=== PATIENT | female | born 1970 | race Hispanic/Latino ===

== ENCOUNTER 2022-08-13 10:21 | Emergency (ER) | payer BC ==
--- OUTSIDE RECORDS SUMMARY | 2022-08-13 10:25 | XMS REPORT | Continuity of Care Document ---
:1970 Author Organization [facility] t Address [address] [place] [address] Care Team Providers Name Role Phone Jarvis Hendrix Attending Clinician Unavailable JARVIS HENRDIX Admitting Clinician Unavailable Payers Payer Name Policy Type Policy Number Effective Date Expiration Date Sheree matt Ambetter from [id number] 2019 [facility] 00:00:00 - [facility] Ambetter from [id number] 2019 [facility] 00:00:00 - [facility] Ambetter from [id number] 2019 [facility] 00:00:00 - [facility] Ambetter from [id number] 2019 [facility] 00:00:00 - [facility] Ambetter from [id number] 2019 [facility] 00:00:00 - [facility] Ambetter from [id number] 2019 [facility] 00:00:00 - [facility] Ambetter from [id number] 2019 [facility] 00:00:00 - [facility] Problems Condition Condition Condition Status Onset Resolution Last Treating Co mments Source Name Details Category Date Date Treatment Clinician Date [id number] Iron Problem Active [facility] deficiency [facility] anemia, - [facility] unspecifie [facility] deficiency Medica l anemia Center type [id number] JENNIFER Problem Active Common (generaliz [facility] ed anxiety - [facility] disorder) [facility] [id number] Mixed Problem Active Common hyperlipid [facility] emia [facility] [id number] PUD Problem Active Common (peptic [facility] ulcer - [facility]I disease) [facility] Allergies, Adverse Reactions, Alerts This patient has no known allergies or adverse reactions. Social History Social Habit Start Date Stop Date Quantity Comments Source History of Tobacco Use Co mmon [facility] Sex Assigned At Com mon [facility] Smoking Status Start Date Stop Date Source Never Smoker [facility] Medications Ordered Filled Start Stop Current Ordering Indication Dosage Frequency Signature Comments Components Source Medication Medication Date Date Medication? Clinician (SIG) Name Name Pantoprazol Pantoprazol No 1{table QD Pantoprazo e Sodium 40 e Sodium 40 4-05 t} le Sodium MG MG 00:00: 40 MG 00 Pantoprazol Pantoprazol No 1{table QD Pantoprazo e Sodium 40 e Sodium 40 4-05 t} le Sodium MG MG 00:00: 40 MG 00 Zoloft 50 Zoloft 50 2019-06 No QD Zoloft 50 MG MG 0-20 MG 00:00: 00 Zoloft 50 Zoloft 50 No 1{table QD Zoloft 50 MG MG t} MG Zoloft 50 Zoloft 50 No 1{table QD Zoloft 50 MG MG t} MG Pantoprazol Pantoprazol No Pantoprazo e Sodium 40 e Sodium 40 le Sodium MG MG 40 MG Zoloft 50 Zoloft 50 No 1{table QD Zoloft 50 MG MG t} MG Zoloft 50 Zoloft 50 No 1{table QD Zoloft 50 MG MG t} MG Zoloft 50 Zoloft 50 No 1{table QD Zoloft 50 MG MG t} MG Zoloft 50 Zoloft 50 No 1{table QD Zoloft 50 MG MG t} MG Immunizations Ordered Immunization Filled Immunization Date Status Commen ts Source Name Name Afluria single dose Afluria single dose 2020-04-07 Completed [facility] 14:55:00 [facility] Afluria single dose Afluria single dose 2020-04-07 Completed [facility] 14:55:00 - [facility] Afluria single dose Afluria single dose 2020-04-07 Completed [facility] 14:55:00 - [facility] Afluria single dose Afluria single dose 2020-04-07 Completed [facility] 14:55:00 - [facility] Afluria single dose Afluria single dose 2020-04-07 Completed [facility] 14[facility]55:00 - [facility] Afluria single dose Afluria single dose 2020-04-07 Completed [facility] 14:55:00 - [facility] Afluria single dose Afluria single dose 2020-04-07 Completed [facility] 14:55:00 - [facility] Fluzone Fluzone 2019-08-27 Completed [facility] 14:13:00 [facility] Adacel (Tdap) Adacel (Tdap) 2019-08-27 Completed [facility] 14:13:00 - [facility] Fluzone Fluzone 2019-08-27 Completed [facility] 14:13:00 - [facility] Adacel (Tdap) Adacel (Tdap) 2019-08-27 Completed [facility] 14:13:00 - [facility] Fluzone Fluzone 2019-08-27 Completed [facility] 14:13:00 [facility] Adacel (Tdap) Adacel (Tdap) 2019-08-27 Completed [facility] 14:13:00 - [facility] Fluzone Fluzone 2019-08-27 Completed [facility] 14:13:00 [facility] Adacel (Tdap) Adacel (Tdap) 2019-08-27 Completed [facility] 14:13:00 - [facility] Fluzone Fluzone 2019-08-27 Completed [facility] 14:13:00 [facility] Adacel (Tdap) Adacel (Tdap) 2019-08-27 Completed [facility] 14:13:00 - [facility] Fluzone Fluzone 2019-08-27 Completed [facility] 14:13:00 - [facility] Adacel (Tdap) Adacel (Tdap) 2019-08-27 Completed [facility] 14:13:00 - [facility] Fluzone Fluzone 2019-08-27 Completed [facility] 14:13:00 - [facility] Adacel (Tdap) Adacel (Tdap) 2019-08-27 Completed [facility] 14:13:00 - [facility] Vital Signs Vital Name Observation Time Observation Value Comments Source blood pressure 2020-09-21 16:20:00 70 mm[Hg] [facility] - diastolic [facility] height 2020-09-21 16:20:00 62 [in_i] [facility] weight 2020-09-21 16:20:00 138.8 [lb_av] [facility] temperature 2020-09-21 16:20:00 97.4 [degF[facility] bmi 2020-09-21 16:20:00 25.38 kg/m2 [facility] S pirit [facility] oximetry 2020-09-21 16:20:00 99 % [facility] pirit [facility] respiratory rate 2020-09-21 16:20:00 17 /min Comm on [facility] - [facility] blood pressure 2020-09-21 16:20:00 132 mm[Hg] [facility] - systolic [facility] height 2020-06-03 15:00:00 62 [in_i] [facility] - [facility] weight 2020-06-03 15:00:00 148 [lb_av] Common [facility] - [facility] temperature 2020-06-03 15:00:00 98.5 [degF] [facility] - [facility] bmi 2020-06-03 15:00:00 27.07 kg/m2 [facility] - [facility] blood pressure 2020-06-03 15:00:00 129 mm[Hg] Common [facility] - systolic [facility] blood pressure 2020-06-03 15:00:00 78 mm[Hg] [facility] - diastolic [facility] height 2020-05-04 15:50:00 62 [in_i] Common [facility] weight 2020-05-04 15:50:00 146.9 [lb_av] Common [facility] temperature 2020-05-04 15:50:00 97.7 [degF] Common [facility] bmi 2020-05-04 15:50:00 26.87 kg/m2 Common [facility] oximetry 2020-05-04 15:50:00 98 % Common [facility] respiratory rate 2020-05-04 15:50:00 16 /min Comm on [facility] blood pressure 2020-05-04 15:50:00 128 mm[Hg] Common [facility] - systolic [facility] blood pressure 2020-05-04 15:50:00 76 mm[Hg] Common [facility] - diastolic [facility] height 2020-04-07 14:00:00 62 [in_i] Common [facility] weight 2020-04-07 14:00:00 142.9 [lb_av] Common [facility] temperature 2020-04-07 14:00:00 97.3 [degF] Common [facility] bmi 2020-04-07 14:00:00 26.13 kg/m2 [facility] oximetry 2020-04-07 14:00:00 98 % Common [facility] respiratory rate 2020-04-07 14:00:00 16 /min Comm on [facility] blood pressure 2020-04-07 14:00:00 135 mm[Hg] Common [facility] - systolic [facility] blood pressure 2020-04-07 14:00:00 70 mm[Hg] Common [facility] diastolic [facility] Procedures This patient has no known procedures. Encounters Start End Encounter Admission Attending Care Care Encounter Source Date/Time Date/Time Type Type Clinicians Facility Department ID 2021-07-14 Outpatient HendrixYOEL doran [facility] [id number] Common 12:48:03 [facility] [address] [facility] 2021-07-14 Outpatient Hendrix, STLMLC STLMLC [id number] Common 12:47:30 Jarvis [address] [facility] 2021-07-14 Outpatient Hendrix, STLMLC STLMLC [id number] Common 12:45:23 Jarvis [id number] [facility] 2021-07-14 Outpatient Hendrix, STLMLC STLMLC [id number] Common 12:37:55 Jarvis [address] [facility] 2021-07-14 Outpatient Hendrix, STLMLC STLMLC [id number] Common 12:13:44 Jarvis [address]9999 [facility] 2021-07-14 Outpatient Hendrix, STLMLC STLMLC [id number] Common 12:13:20 Jarvis [address] [facility] 2021-07-14 Outpatient Hendrix, STLMLC STLMLC [id number] Common 12:05:14 Jarvis 72440 [facility] 2021-07-14 Outpatient Hendrix, STLMLC STLMLC [id number] Common 11:57:09 Jarvis [address] [facility] 2021-07-14 Outpatient Hendrix, STLMLC STLMLC [id number] Common 11:17:14 Jarvis [address] [facility] 2021-07-14 Outpatient Hendrix, STLMLC STLMLC [id number] Common 11:17:03 Jarvis 02[address] [facility] 2020-12-15 2020-12-15 (TEL) STLMLC STLMLC [id number] Co mmon 00:00:00 00:00:00 [facility] 2020-09-21 2020-09-21 OFFICE STLMLC STLMLC [id number] Co mmon 00:00:00 00:00:00 VISIT [facility] PT - CHI LEVEL 4 [facility] 2020-09-21 2020-09-21 (TEL) STLMLC STLMLC [id number] Co mmon 00:00:00 00:00:00 [facility] 2020-06-03 2020-06-03 OFFICE STLMLC STLMLC [id number] Co mmon 00:00:00 00:00:00 VISIT [facility] ESTAB PT - CHI LEVEL 4 [facility] 2020-05-12 2020-05-12 (TEL) STLMLC STLMLC [id number] Co mmon 00:00:00 00:00:00 [facility] - CHI [facility] 2020-05-04 2020-05-04 OFFICE STLMLC STLMLC [id number] Co mmon 00:00:00 00:00:00 VISIT [facility] ESTAB PT - CHI LEVEL 4 [facility] 2020-04-07 2020-04-07 OFFICE STLMLC STLMLC [id number] Co mmon 00:00:00 00:00:00 VISIT [facility] ESTAB PT - CHI LEVEL 4 [facility] 2019-12-04 2019-12-04 [id number] Common 11:30:00 11:30:00 t [employer] Sp[facility] Family Medicine [facility] Results Test Description Test Time Test Comments Results Result Sourc e Comments SCR MAMM 2018-11-29 - SCR MAMM BILATERAL BILATERAL [facility]UR[facility]H 14:43:07 [facility] CAD CAD DIGITAL DIGITALBILATERAL DIGITAL SCREENING MAMMOGRAM 3D/2D WITH CAD: 11/16/2018CLINICAL: Asymptomatic. Digital breast tomosynthesis was performed in addition to routine CC and MLO views. Current mammographic images were evaluated by either a ezeep M-Vu or a [employer] ImageChecker CAD (computer aided detection system). Comparison is made to exam dated 06/16/2017 mammogram - [facility]-Dept of R[facility]ilogy-Rm 2.504. There are scattered fibroglandular tissues in both breasts. No suspicious mass, architectural distortion, malignant type calcification, or lymph node abnormality detected. Breast architecture is stable compared to prior exams.IMPRESSION: NEGATIVEThere is no mammographic evidence of malignancy. Resume annual screening mammography in one year. Laura monroe/howie:11/29/2018 14:43:07 Lead Web Developer: Alberta Singleton MM, [facility] Mammographyletter sent: BIRADS 1-2 Normal Mammogram BI-RADS: 1 Negative
[2022-08-13] MEDS ORDERED: KETOROLAC 30 MG/ML INJ ONE (10:31)
[2022-08-13] MEDS ORDERED: ONDANSETRON 4 MG/2 ML VIAL ONE (10:32)
[2022-08-13] MEDS ORDERED: NA CHLORIDE 0.9% 1,000 ML ONE (10:32)
[2022-08-13] MEDS ORDERED: FAMOTIDINE 20 MG/2 ML VIAL IV ONE (10:32)
[2022-08-13 10:37] LABS: Absolute Lymphocytes (CBC) 1.7 K/uL (0.7-4.9); Hematocrit 42.4 % (36.0-45.0); Lymphocytes % 14.5 % (15.3-44.8); MCV 90.9 fL (80-100); RBC Red Blood Cell Count 4.67 M/uL (3.86-4.86)
[2022-08-13 11:04] LABS: Albumin 4.1 g/dL (3.4-5.0); Bilirubin Total 0.4 mg/dL (0.2-1.0); Potassium 3.3 mmol/L (3.5-5.1); Protein, Total 8.4 g/dL (6.4-8.2)
--- NOTE | 2022-08-13 11:32 | RAD REPORT ---
EXAM DESCRIPTION: US - Abdomen Exam Limited - 08/13/2022 11:24 am CLINICAL HISTORY: ABD PAIN COMPARISON: No comparisons FINDINGS: The gallbladder demonstrates no gallstones. No pericholecystic fluid or gallbladder wall t hickening. The common bile duct is normal measuring 3 mm. The liver demonstrates no findings of intrahepatic biliary dilatation. IMPRESSION: Unremarkable examination.
--- NOTE | 2022-08-13 12:13 | RAD REPORT ---
EXAM DESCRIPTION: CTAbdomen Pelvis W Contrast - 08/13/2022 11:58 am CLINICAL HISTORY: ABD PAIN COMPARISON: Abdomen Exam Limited dated 08/13/2022 TECHNIQUE: CT of the abdomen and pelvis was performed. All CT scans are performed using dose optimization technique as appropriate and may include automated exposure control or mA/KV adjustment according to patient size. FINDINGS: Lower chest: No acute abnormality. Mild circumferential thickened distal esophagus. This c ould reflect mild esophagitis. Liver: No acute abnormality or suspicious lesions. Biliary: No biliary ductal dilatation. Phrygian cap. Stomach: No significant focal abnormality. Duodenum: Wall thickening approximate duodenum. Pancreas: No significant abnormality. Spleen: No significant abnormality. Adrenal: No suspicious lesions. Kidney/ureter: No hydronephrosis. No renal calculi. Retroperitoneum: No retroperitoneal adenopathy. Vascular: No aneurysm. Bowel: No significant focal abnormality. Normal appendix. Peritoneum: No ascites or free air. Bladder: Grossly unremarkable. Reproductive: No adnexal masses. Bones: No acute fracture. Other: n/a IMPRESSION: Wall thickening of the proximal duodenum could reflect either underlying duodenal inflam mation or possibly a peptic ulcer. Endoscopy could confirm.
[2022-08-13 12:24] LABS: Urine Blood Trace-lysed (Negative); Urine Glucose Negative (Negative); Urine Protein Negative (Negative); Urine Specific Gravity 1.015 (1.005-1.030)
--- NOTE | 2022-08-13 13:00 | EDPHYS ---
Physician Documentation [facility] Name: Star Andrade Age: 51 yrs Sex: Female : 1970 Arrival Date: 08/13/2022 Time: 10:23 Bed 18 Private MD: ED Physician Buck Mcbride HPI: 08/13 12:04 This 51 yrs old Female presents to ER via Wheelchair with complaints of kb Abdominal Pain, Nausea/Vomiting. 12:04 The patient presents with abdominal pain in the upper abdomen. Onset: The kb symptoms/episode began/occurred this morning. The symptoms do not radiate. Associated signs and symptoms: Pertinent positives: nausea and vomiting, Pertinent negatives: diarrhea, fever. The symptoms are described as constant. Modifying factors: The symptoms are alleviated by nothing, the symptoms are aggravated by nothing. Severity of pain: At its worst the pain was moderate in the emergency department the pain is unchanged. The patient has experienced similar episodes in the past. The patient has not recently seen a physician. Historical: - Allergies: 10:28 No Known Allergies; aa5 - PMHx: 10:28 Stomach Ulcers; aa5 - PSHx: 10:28 None; aa5 - Immunization history:: Adult Immunizations unknown. - Social history:: Smoking status: Patient denies any tobacco usage or history of. ROS: 12:04 Constitutional: Negative for fever, chills, and weight loss. kb 12:04 Abdomen/GI: Positive for abdominal pain, nausea and vomiting, Negative for diarrhea. 12:04 All other systems are negative. Exam: 12:04 Constitutional: This is a well developed, well nourished patient who is awake, alert, kb and in no acute distress. Head/Face: Normocephalic, atraumatic. ENT: Moist Mucous membranes Cardiovascular: Regular rate and rhythm with a normal S1 and S2. No gallops, murmurs, or rubs. No pulse deficits. Respiratory: Respirations even and unlabored. No increased work of breathing. Talking in full sentences Skin: Warm, dry with normal turgor. Normal color. MS/ Extremity: Pulses equal, no cyanosis. Neurovascular intact. Full, normal range of motion. Neuro: Awake and alert, GCS 15, oriented to person, place, time, and situation. Moves all extremities. Normal gait. Psych: Awake, alert, with orientation to person, place and time. Behavior, mood, and affect are within normal limits. 12:04 Abdomen/GI: Inspection: abdomen appears normal, Bowel sounds: normal, Palpation: soft, in all quadrants, mild abdominal tenderness, in the right upper quadrant and left upper quadrant, moderate abdominal tenderness, in the epigastric area. Vital Signs: 10:23 BP 179 / 119; Pulse 111; Resp 20 S; Temp 97.8(TE); Pulse Ox 100% on R/A; aa5 11:19 BP 155 / 98; Pulse 81; Resp 16; Pulse Ox 99% ; Pain 8/10; hb 12:00 BP 148 / 96; Pulse 82; Resp 17; Pulse Ox 100% on R/A; eh3 10:23 Pt restless during VS aa5 MDM: 10:23 Patient medically screened. kb 12:03 Differential diagnosis: cholecystitis, Cholelithiasis, gastritis, non-specific abd kb pain, Peptic Ulcer Disease. Data reviewed: vital signs, nurses notes. ED course: Patient is a 51-year-old female with a history of stomach ulcers who presents for upper abdominal pain, nausea and vomiting that started this morning. On exam patient has tenderness to upper abdomen worse in epigastric area. Serum labs and ultrasound ordered. During ultrasound patient reported pain moved to lower abdomen as well. CT scan ordered.. 08/13 10:24 Order name: CBC with Diff; Complete Time: 10:49 kb 08/13 10:24 Order name: CMP; Complete Time: 11:17 kb 08/13 10:24 Order name: Lipase; Complete Time: 11:17 kb 08/13 10:24 Order name: Abdomen Limited US; Complete Time: 11:37 kb 08/13 11:32 Order name: CT Abd/Pelvis - IV Contrast Only; Complete Time: 12:17 aa5 08/13 12:24 Order name: Urine Dipstick-Ancillary; Complete Time: 12:42 EDMS 08/13 10:24 Order name: IV Saline Lock; Complete Time: 10:34 kb 08/13 10:24 Order name: Labs collected and sent; Complete Time: 10:34 kb 08/13 10:24 Order name: Urine Dipstick-Ancillary (obtain specimen); Complete Time: 12:25 kb Administered Medications: 10:34 Drug: NS 0.9% 1000 ml Route: IV; Rate: 1 bolus; Site: right antecubital; hb 12:25 Follow up: IV Status: Completed infusion; IV Intake: 1000ml eh3 10:34 Drug: Pepcid (famotidine) 20 mg Route: IVP; Site: right antecubital; hb 11:13 Follow up: Response: No adverse reaction hb 12:25 Follow up: Response: Pain is decreased eh3 10:35 Drug: TORadol - (ketorolac) 15 mg Route: IVP; Site: right antecubital; hb 11:13 Follow up: Response: No adverse reaction hb 12:25 Follow up: Response: Pain is decreased eh3 10:35 Drug: Zofran (Ondansetron) 4 mg Route: IVP; Site: right antecubital; hb 11:13 Follow up: Response: No adverse reaction hb 12:25 Follow up: Response: Nausea is decreased eh3 13:30 Drug: Potassium Chloride 20 mEq Route: PO; aa5 13:30 Follow up: Response: Medication administered at discharge. aa5 Disposition Summary: 08/13/22 13:00 Discharge Ordered Location: Home kb Condition: Stable kb Diagnosis - Upper abdominal pain, unspecified kb Followup: kb - With: Emergency Department - When: As needed - Reason: Worsening of condition Followup: kb - With: Private Physician - When: 2 - 3 days - Reason: Recheck today's complaints, Continuance of care, Re-evaluation by your physician Discharge Instructions: - Discharge Summary Sheet kb - Abdominal Pain, Adult, [id number] kb Forms: - Medication Reconciliation Form kb - Thank You Letter kb - Antibiotic Education kb - Prescription Opioid Use kb Prescriptions: - Protonix 40 mg Oral Tablet - take 1 tablet by ORAL route once daily; 30 tablet; Refills: 0, Product kb Selection Permitted - Zofran 4 mg Oral Tablet - take 1 tablet by ORAL route every 8 hours As needed; 12 tablet; Refills: 0, kb Product Selection Permitted - dicyclomine 20 mg Oral Tablet - take 1 tablet by ORAL route 4 times per day As needed; 20 tablet; Refills: 0, kb Product Selection Permitted Signatures: Dispatcher [employer] Silvia Rouse FNP-C FNP-Leanne Gipson RN RN aa5 Noemi Talley RN RN hb Quiñones, Nora RN eh3
--- NOTE | 2022-08-13 13:00 | ER ---
Nurse's Notes [facility] Name: Star Andrade Age: 51 yrs Sex: Female : 1970 Arrival Date: 08/13/2022 Time: 10:23 Bed 18 Private MD: Diagnosis: Upper abdominal pain, unspecified Presentation: 08/13 10:23 Chief complaint: Patient states: epigastric pain and vomiting bile that began this aa5 morning. Denies diarrhea. Pt states "I am feeling dizzy like I am going to pass out". Pt moaning and restless during triage. 10:23 Onset of symptoms was August 13, 2022. aa5 10:23 Acuity: KASHIF 3 aa5 10:23 Method Of Arrival: Wheelchair aa5 10:23 Coronavirus screen: vomiting. Ebola Screen: Patient denies travel to an Ebola-affected [facility] area in the 21 days before illness onset. Initial Sepsis Screen: Does the patient meet any 2 criteria? HR > 90 bpm. Does the patient have a suspected source of infection? No. Patient's initial sepsis screen is negative. Risk Assessment: Do you want to hurt yourself or someone else? Patient reports no desire to harm self or others. Historical: - Allergies: 10:28 No Known Allergies; aa5 - PMHx: 10:28 Stomach Ulcers; aa5 - PSHx: 10:28 None; aa5 - Immunization history:: Adult Immunizations unknown. - Social history:: Smoking status: Patient denies any tobacco usage or history of. Screenin:34 [facility] ED Fall Risk Assessment (Adult) Score/Fall Risk Level 0 - 2 = Low Risk hb Oriented to surroundings, Maintained a safe environment, Educated pt \\T\\ family on fall prevention, incl call for assistance when getting out of bed. Abuse screen: Denies threats or abuse. Denies injuries from another. Nutritional screening: No deficits noted. Tuberculosis screening: No symptoms or risk factors identified. Assessment: 10:29 General: Appears in no apparent distress. ill, Behavior is calm, cooperative. Pain: hb Pain currently is 7 out of 10 on a pain scale. Neuro: Level of Consciousness is awake, alert, obeys commands, Oriented to person, place, time, situation. Cardiovascular: Patient's skin is warm and dry. Respiratory: Respiratory effort is even, unlabored, Respiratory pattern is regular, symmetrical. GI: Reports upper abdominal pain, nausea, vomiting. : No signs and/or symptoms were reported regarding the genitourinary system. EENT: No signs and/or symptoms were reported regarding the EENT system. Derm: Skin is pink, warm \\T\\ dry. Musculoskeletal: No signs and/or symptoms reported regarding the musculoskeletal system. 11:12 Reassessment: Patient appears in no apparent distress at this time. Patient and/or hb family updated on plan of care and expected duration. Pain level reassessed. Patient is alert, oriented x 3, equal unlabored respirations, skin warm/dry/pink. 12:00 General: Appears in no apparent distress. uncomfortable, Behavior is calm, cooperative, eh3 appropriate for age. Pain: Complains of pain in left lower quadrant Pain currently is 4 out of 10 on a pain scale. Neuro: Level of Consciousness is awake, alert, obeys commands, Oriented to person, place, time, situation. Cardiovascular: Capillary refill < 3 seconds Patient's skin is warm and dry. Respiratory: Airway is patent Respiratory effort is even, unlabored, Respiratory pattern is regular, symmetrical. GI: Abdomen is flat, non-distended, Reports lower abdominal pain. : No signs and/or symptoms were reported regarding the genitourinary system. EENT: No signs and/or symptoms were reported regarding the EENT system. Derm: Skin is pink, warm \\T\\ dry. Musculoskeletal: Circulation, motion, and sensation intact. Range of motion: intact in all extremities. 13:31 Reassessment: Patient is alert, oriented x 3, equal unlabored respirations, skin aa5 warm/dry/pink. Vital Signs: 10:23 BP 179 / 119; Pulse 111; Resp 20 S; Temp 97.8(TE); Pulse Ox 100% on R/A; aa5 11:19 BP 155 / 98; Pulse 81; Resp 16; Pulse Ox 99% ; Pain 8/10; hb 12:00 BP 148 / 96; Pulse 82; Resp 17; Pulse Ox 100% on R/A; eh3 10:23 Pt restless during VS aa5 ED Course: 10:23 Patient arrived in ED. kb 10:23 [facility]C [facility] kb 10:23 Arm band placed on. aa5 10:24 Reed, Buck, MD is Attending Physician. kb 10:25 Noemi Talley, RN is Primary Nurse. hb 10:27 Triage completed. aa5 10:30 Inserted saline lock: 20 gauge in right antecubital area, using aseptic technique. hb Blood collected. 10:34 Patient has correct armband on for positive identification. hb 11:26 Abdomen Limited US In Process Unspecified. EDMS 11:59 CT Abd/Pelvis - IV Contrast Only In Process Unspecified. EDMS 13:30 No provider procedures requiring assistance completed. IV discontinued, intact, aa5 bleeding controlled, No redness/swelling at site. Pressure dressing applied. Administered Medications: 10:34 Drug: NS 0.9% 1000 ml Route: IV; Rate: 1 bolus; Site: right antecubital; hb 12:25 Follow up: IV Status: Completed infusion; IV Intake: 1000ml eh3 10:34 Drug: Pepcid (famotidine) 20 mg Route: IVP; Site: right antecubital; hb 11:13 Follow up: Response: No adverse reaction hb 12:25 Follow up: Response: Pain is decreased eh3 10:35 Drug: TORadol - (ketorolac) 15 mg Route: IVP; Site: right antecubital; hb 11:13 Follow up: Response: No adverse reaction hb 12:25 Follow up: Response: Pain is decreased eh3 10:35 Drug: Zofran (Ondansetron) 4 mg Route: IVP; Site: right antecubital; hb 11:13 Follow up: Response: No adverse reaction hb 12:25 Follow up: Response: Nausea is decreased eh3 13:30 Drug: Potassium Chloride 20 mEq Route: PO; aa5 13:30 Follow up: Response: Medication administered at discharge. aa5 Medication: 10:34 VIS not applicable for this client. hb Intake: 12:25 IV: 1000ml; Total: 1000ml. eh3 Outcome: 13:00 Discharge ordered by . kb 13:31 Discharged to home ambulatory, with family. aa5 13:31 Condition: improved 13:31 Discharge instructions given to patient, family, Instructed on discharge instructions, follow up and referral plans. medication usage, Demonstrated understanding of instructions, follow-up care, medications, Prescriptions given X 3. 13:31 Patient left the ED. aa5 Signatures: Dispatcher [employer] EDMS Aki Gaxiolaistin, SHELL GRADER-C SHELL GRADER-Leanne Gipson RN RN aa5 Noemi Talley RN RN Nora Quiñones RN RN 3 Corrections: (The following items were deleted from the chart) 12:27 12:25 Reassessment: [place] [id number]
[2022-08-13] MEDS ORDERED: POTASSIUM CL SA 10 MEQ TAB PO ONE (13:25)
[2022-08-13 14:00] VITALS: TEMP 97.8
[2022-08-13 14:02] VITALS: BP 148/96; O2SAT 100
== END 2022-08-13 13:31 | disposition home or self-care (01) ==
LOC: ER 10:21
DX: R10.13 Epigastric pain (principal); R11.2 Nausea with vomiting, unspecified
CPT/HCPCS: 96361; 85025; 36415; 81003; 83690; 80053; 74177; 76705; 96375; 96374; 99284; Q9967; J7030; J2405

== ENCOUNTER 2023-05-25 21:13 | Emergency (ER) | payer BC ==
--- OUTSIDE RECORDS SUMMARY | 2023-05-25 21:16 | XMS REPORT | Continuity of Care Document ---
Author Name Unknown Address [address] [facility] [place] [address] [facility] Address [address] [facility] [address] [place] [address] Care Team Providers Care Extended Insurance Clerk Name Role Phone Jarvis Hendrix Attending Clinician Unavailable [email or web address] Attending Clinician Unavaila ble JARVIS HENDRIX Admitting Clinician Unavailable [email or web address] Admitting Clinician Teresea isaías Payers Payer Name Policy Type Policy Number Effective Date Expirati on Date Source [employer] from [facility] [id number] 2019 00:00:00 [facility] from [facility] [id number] 2019 00:00:00 [facility] from [facility] [id number] 00:00:00 [facility] from [facility] [id number] 00:00:00 [facility]etter from [facility] [id number] 2019 00:00:00 [facility]etter from [facility] [id number] 2019 00:00:00 [facility] [employer]etter from [facility] [id number] 2019 00:00:00 [facility] Problems Condition Name Condition Details Condition Category Status Onset Date Resolution Date Last Treatment Date Treating Clinician Comments Source [id number] Mixed hyperlipid emia Problem Active [facility] [id number] PUD (peptic ulcer disease) Problem Active [facility] [id number] Iron deficiency anemia, unspecifie d iron deficiency anemia type Problem Active [facility] [id number] JENNIFER (generaliz ed anxiety disorder) Problem Active [facility] Social History Social Habit Start Date Stop Date Quantity Comments Source History of Tobacco Use [facility] Sex Assigned At [facility] Smoking Status Start Date Stop Date Source Never Smoker [facility] Medications Ordered Medication Name Filled Medication Name Start Date Stop Date Current Medication? Ordering Clinician Indication Dosage Frequency Signature (SIG) Comments Components Source Pantoprazol e Sodium 40 MG Pantoprazol e Sodium 40 MG 09-21 00:00: 00 No 1{table t} QD Pantoprazo le Sodium 40 MG Pantoprazol e Sodium 40 MG Pantoprazol e Sodium 40 MG 09-21 00:00: 00 No 1{table t} QD Pantoprazo le Sodium 40 MG Zoloft 50 MG Zoloft 50 MG 2019-06 00:00: 00 No QD Zoloft 50 MG Zoloft 50 MG Zoloft 50 MG No 1{table t} QD Zoloft 50 MG Zoloft 50 MG Zoloft 50 MG No 1{table t} QD Zoloft 50 MG Pantoprazol e Sodium 40 MG Pantoprazol e Sodium 40 MG No Pantoprazo le Sodium 40 MG Zoloft 50 MG Zoloft 50 MG No 1{table t} QD Zoloft 50 MG Zoloft 50 MG Zoloft 50 MG No 1{table t} QD Zoloft 50 MG Zoloft 50 MG Zoloft 50 MG No 1{table t} QD Zoloft 50 MG Zoloft 50 MG Zoloft 50 MG No 1{table t} QD Zoloft 50 MG Vital Signs Vital Name Observation Time Observation Value Comments S ource blood pressure diastolic 2020-09-21 16:20:00 70 mm[Hg] Common [facility] height 2020-09-21 16:20:00 62 [in_i] Commo n [facility] weight 2020-09-21 16:20:00 138.8 [lb_av] Co mmon [facility] temperature 2020-09-21 16:20:00 97.4 [degF] Com mon [facility] bmi 2020-09-21 16:20:00 25.38 kg/m2 Comm on [facility] oximetry 2020-09-21 16:20:00 99 % Commo n [facility] respiratory rate 2020-09-21 16:20:00 17 /min [facility] blood pressure systolic 2020-09-21 16:20:00 132 mm[Hg] Common [facility] height 2020-06-03 15:00:00 62 [in_i] Commo n [facility] weight 2020-06-03 15:00:00 148 [lb_av] Comm on [facility] temperature 2020-06-03 15:00:00 98.5 [degF] Com [facility] bmi 2020-06-03 15:00:00 27.07 kg/m2 Comm on [facility] blood pressure systolic 2020-06-03 15:00:00 129 mm[Hg] Common [facility] blood pressure diastolic 2020-06-03 15:00:00 78 mm[Hg] [facility] height 2020-05-04 15:50:00 62 [in_i] Commo n [facility] weight 2020-05-04 15:50:00 146.9 [lb_av] Co mmon [facility] temperature 2020-05-04 15:50:00 97.7 [degF] Com [facility] bmi 2020-05-04 15:50:00 26.87 kg/m2 Comm on [facility] oximetry 2020-05-04 15:50:00 98 % Commo n [facility] respiratory rate 2020-05-04 15:50:00 16 /min [facility] blood pressure systolic 2020-05-04 15:50:00 128 mm[Hg] [facility] diastolic 2020-05-04 15:50:00 76 mm[Hg] [facility] height 2020-04-07 14:00:00 62 [in_i] Commo n [facility] weight 2020-04-07 14:00:00 142.9 [lb_av] Co mmon [facility] temperature 2020-04-07 14:00:00 97.3 [degF] Com mon [facility] bmi 2020-04-07 14:00:00 26.13 kg/m2 Comm on [facility] oximetry 2020-04-07 14:00:00 98 % Commo n [facility] respiratory rate 2020-04-07 14:00:00 16 /min [facility] blood pressure systolic 2020-04-07 14:00:00 135 mm[Hg[facility] diastolic 2020-04-07 14:00:00 70 mm[Hg] [facility] Encounters Start Date/Time End Date/Time Encounter Type Admission Type Attending [facility] Care Facility Care Department Encounter ID Source 2021-07-14 12:48:03 [facility] [id number] [facility] 2021-07-14 12:47:30 Outpatient Hendrix, [facility] [id number] [facility] 2021-07-14 12:45:23 Outpatient Hendrix, [facility] [id number] [facility] 2021-07-14 12:37:55 Outpatient Hendrix, [facility] [id number] [facility] 2021-07-14 12:13:44 Outpatient Hendrix, Jarvis STLMLC STL[facility] [id number] [facility] 2021-07-14 12:13:20 Outpatient Hendrix, Jarvis STLMLC STLMLC [id number] [facility] 2021-07-14 12:05:14 Outpatient Hendrix, Jarvis STLMLC STL[facility]C [id number] [facility] 2021-07-14 11:57:09 Outpatient Hendrix, Jarvis STLC STLMLC [id number] [facility] 2021-07-14 11:17:14 Outpatient Hendrix, Jarvis STLMLC STLMLC [id number] [facility] 2021-07-14 11:17:03 Outpatient Hendrix, Jarvis STLC STLMLC [id number] [facility] 2023-04-27 00:00:00 2023-04-27 00:00:00 Outpatient GC_GCBZW_Ka diyala_S PRIV PRIV [id number] [facility] 2023-04-15 00:00:00 2023-04-15 00:00:00 Outpatient GC_GCBZW_Ka diyala_S PRIV PRIV [id number] [facility] 2020-12-15 00:00:00 2020-12-15 00:00:00 (TEL) STLMLC STLMLC [id number] [facility] 2020-09-21 00:00:00 2020-09-21 00:00:00 OFFICE VISIT ESTAB PT LEVEL 4 STLMLC STLMLC [id number] [facility] 2020-09-21 00:00:00 2020-09-21 00:00:00 (TEL) STLMLC STLMLC [id number] [facility] 2020-06-03 00:00:00 2020-06-03 00:00:00 OFFICE VISIT ESTAB PT LEVEL 4 STLMLC STLMLC [id number] [facility] 2020-05-12 00:00:00 2020-05-12 00:00:00 (TEL) STLMLC STLC [id number] [facility] 2020-05-04 00:00:00 2020-05-04 00:00:00 OFFICE VISIT ESTAB PT LEVEL 4 STLMLC STLMLC [id number] [facility] 2020-04-07 00:00:00 2020-04-07 00:00:00 OFFICE VISIT ESTAB PT LEVEL 4 STLMLC STLMLC [id number] [facility] 2019-12-04 11:30:00 2019-12-04 11:30:00 Outpatient [facility] [id number] [facility] Results Test Description Test Time Test Comments Results Resul t Comments Source SCR MAMM BILATERAL SAURABH CAD DIGITAL 2018-11-29 14:43:07 - SCR MAMM BILATERAL SAURABH CAD DIGITALBILATERAL DIGITAL SCREENING MAMMOGRAM 3D/2D WITH CAD: 11/16/2018CLINICAL: Asymptomatic. Digital breast tomosynthesis was performed in addition to routine CC and MLO views. Current mammographic images were evaluated by either a [employer] M-Vu or a [employer] ImageChecker CAD (computer aided detection system). Comparison is made to exam dated 06/16/2017 mammogram - [facility]-Dept of [facility]-Rm 2.504. There are scattered fibroglandular tissues in both breasts. No suspicious mass, architectural distortion, malignant type calcification, or lymph node abnormality detected. Breast architecture is stable compared to prior exams.IMPRESSION: NEGATIVEThere is no mammographic evidence of malignancy. Resume annual screening mammography in one year. Laura monroe/howie:11/29/2018 14:43:07 Pantograph Setter: Alberta Singleton MM, [facility] Mammographyletter sent: BIRADS 1-2 Normal Mammogram BI-RADS: 1 Negative
[2023-05-25] MEDS ORDERED: MORPHINE 2 MG/ML SYR ONE (22:14)
[2023-05-25] MEDS ORDERED: ASPIRIN 81 MG CHEWABLE TABLET ONE (22:14)
[2023-05-25 22:34] LABS: Absolute Lymphocytes (CBC) 2.9 K/uL (0.7-4.9); Hematocrit 38.8 % (36.0-45.0); Lymphocytes % 37.9 % (15.3-44.8); MCV 90.6 fL (80-100); MPV 8.2 fL (7.6-11.3); Platelets 259 thou/uL (152-406); RBC Red Blood Cell Count 4.28 M/uL (3.86-4.86)
--- NOTE | 2023-05-25 22:35 | RAD REPORT ---
[facility]08 [facility] CLINICAL HISTORY: CHEST PAIN COMPARISON: CHEST SINGLE VIEW dated 07/22/2015; CHEST PA AND LAT 2 VIEW dated 03/17/2008 TECHNIQUE: Portable AP view of the chest. FINDINGS: The lungs are clear. No pneumothorax or effusion. The cardiomediastinal contours are unre markable. IMPRESSION: No acute cardiopulmonary process.
[2023-05-25 22:36] LABS: Protime INR 1.11
[2023-05-25 22:50] LABS: ALT/SGPT 19 U/L (13-56); AST/SGOT 14 U/L (15-37); Albumin 3.4 g/dL (3.4-5.0); Alkaline Phosphatase 66 U/L (45-117); BUN Blood Urea Nitrogen 16 mg/dL (7-18); Bicarbonate 29 mEq/L (21-32); Bilirubin Total 0.2 mg/dL (0.2-1.0); Glomerular Filtration Rate 58 ml/min (=/>90); Glucose Level 111 mg/dL (74-106); Magnesium 2.2 mg/dL (1.6-2.4); NT PRO-BNP 41 pg/mL (<125); Potassium 3.4 mEq/L (3.5-5.1); Protein, Total 7.3 g/dL (6.4-8.2); Sodium Level 138 mEq/L (136-145); Troponin High Sensitivity 4.1 pg/mL (<58.9)
[2023-05-25 22:51] LABS: Bilirubin Direct < 0.1 mg/dL (0-0.2); Bilirubin Indirect, Calculated ND mg/dL (0.2-0.8)
[2023-05-26] MEDS ORDERED: KETOROLAC 30 MG/ML INJ ONE (00:18)
--- NOTE | 2023-05-26 02:59 | EDPHYS ---
Physician Documentation [facility] Name: Star Andrade Age: 52 yrs Sex: Female : 1970 Arrival Date: 05/25/2023 Time: 21:13 Bed 16 Private MD: ED Physician Buck Mcbride HPI: 05/25 22:00 This 52 yrs old Female presents to ER via Ambulatory with complaints of Right cp Side Facial Pain and Chest Pain. 22:00 The patient or guardian reports chest pain that is located primarily in the anterior cp chest wall, mid. Onset: 2 day(s) ago. The pain does not radiate. Associated signs and symptoms: Pertinent negatives: abdominal pain, cough, diaphoresis, lower extremity pain, lower extremity swelling, palpitations, shortness of breath, syncope. The chest pain is described as a pressure. Duration: The patient or guardian reports a single episode, that is still ongoing. Severity of pain: in the emergency department the pain is unchanged despite home interventions. 22:00 Patient also c/o right side facial and jaw pain. cp Historical: - Allergies: 21:18 No Known Allergies; as6 - Home Meds: 21:18 None [Active]; as6 - PMHx: 21:18 Stomach Ulcers; as6 - PSHx: 21:18 None; as6 - Immunization history:: Client reports receiving the 2nd dose of the Covid vaccine. - Social history:: Smoking status: Patient denies any tobacco usage or history of. ROS: 22:05 Constitutional: Negative for body aches, chills, fever, poor PO intake, cp 22:05 Eyes: Negative for injury, pain, redness, and discharge, cp 22:05 ENT: Positive for ear pain, Teeth pain right jaw pain, Negative for drainage from ear(s), sore throat, dental pain, difficulty swallowing, 22:05 Neck: Negative for stiffness, 22:05 Cardiovascular: Positive for chest pain, Negative for edema, palpitations, 22:05 Respiratory: Negative for cough, wheezing, 22:05 Abdomen/GI: Negative for abdominal pain, vomiting, diarrhea, constipation, 22:05 Back: Negative for pain at rest, pain with movement, 22:05 Neuro: Positive for headache, Negative for dizziness, weakness, 22:05 All other systems are negative, Exam: 22:10 ECG was reviewed by the Attending Physician. Vital Signs: 21:17 BP 152 / 106; Pulse 85; Resp 18 S; Temp 97.3(TE); Pulse Ox 97% on R/A; Weight 63.5 kg as6 (R); Height 5 ft. 3 in. (R); Pain 7/10; 21:53 BP 163 / 127; Pulse 87; Resp 16; Pulse Ox 100% on R/A; km8 22:30 BP 154 / 107; Pulse 84; Resp 16; Pulse Ox 99% on R/A; km8 23:00 BP 146 / 91; Pulse 85; Resp 16; Pulse Ox 96% ; km8 23:30 BP 130 / 92; Pulse 73; Resp 16; Pulse Ox 97% on R/A; km8 05/26 00:00 BP 136 / 98; Pulse 73; Pulse Ox 97% on R/A; km8 00:30 BP 157 / 102; Pulse 82; Resp 16; Pulse Ox 97% on R/A; km8 01:00 BP 149 / 99; Pulse 70; Resp 16; Pulse Ox 97% on R/A; km8 01:30 BP 141 / 101; Pulse 68; Resp 16; Pulse Ox 95% on R/A; km8 02:00 BP 147 / 101; Pulse 67; Resp 16; Pulse Ox 97% on R/A; km8 03:00 BP 158 / 108; Pulse 66; Resp 16; Pulse Ox 98% on R/A; km8 05/25 21:17 Body Mass Index 24.80 (63.50 kg, 160.02 cm) as6 05/25 21:17 Pain Scale: Adult as6 Keno Coma Score: 05/25 21:53 Eye Response: spontaneous(4). Motor Response: obeys commands(6). Verbal Response: km8 oriented(5). Total: 15. MDM: 21:19 Patient medically screened. cp 05/25 21:50 Order name: Basic Metabolic Panel; Complete Time: 23:15 cp 05/25 21:50 Order name: CBC with Diff; Complete Time: 23:15 cp 05/25 21:50 Order name: D-Dimer; Complete Time: 23:15 cp 05/25 21:50 Order name: LFT's; Complete Time: 23:15 cp 05/25 21:50 Order name: Magnesium; Complete Time: 23:15 cp 05/25 21:50 Order name: NT PRO-BNP; Complete Time: 23:15 cp 05/25 21:50 Order name: PT-INR; Complete Time: 23:15 cp 05/25 21:50 Order name: Troponin HS; Complete Time: 23:15 cp 05/26 01:21 Order name: Troponin HS; Complete Time: 02:52 cp 05/26 02:52 Interpretation: Reviewed. cp 05/25 21:50 Order name: XRAY Chest (1 view); Complete Time: 23:15 cp 05/25 23:57 Order name: CT Chest For PE Angio cp 05/25 23:57 Order name: CT Head Brain wo Cont cp 05/25 23:57 Order name: CT Facial Bones W/O Con cp 05/25 21:50 Order name: EKG; Complete Time: 21:51 cp 05/25 21:50 Order name: Cardiac monitoring; Complete Time: 21:56 cp 05/25 21:50 Order name: EKG - Nurse/Tech; Complete Time: 22:15 cp 05/25 21:50 Order name: IV Saline Lock; Complete Time: 22:15 cp 05/25 21:50 Order name: Labs collected and sent; Complete Time: 22:15 cp 05/25 21:50 Order name: O2 Per Protocol; Complete Time: 21:56 cp 05/25 21:50 Order name: O2 Sat Monitoring; Complete Time: 21:56 cp EC:10 Rate is 81 beats/min. Rhythm is regular. KS interval is normal. QRS interval is normal. cp QT interval is normal. Interpreted by me. Reviewed by me. Administered Medications: 22:15 Drug: Aspirin PO Chewable Tablet 324 mg PO once; 81 mg tablets x 4 Route: PO; 8 22:55 Follow up: Response: No adverse reaction 22:15 Drug: morphine IVP or IV 2 mg IVP once over 4 mins Route: IVP; Infused Over: 4 mins; km8 Site: left antecubital; 22:55 Follow up: Response: No adverse reaction 05/26 00:10 Drug: Ketorolac IVP 15 mg IVP once Route: IVP; Site: left antecubital; km8 01:00 Follow up: Response: No adverse reaction; Pain is decreased 03:10 Drug: Potassium PO Effervescent Tablet 50 mEq PO once; dissolve in 4 ounces of water or km8 juice Route: PO; 03:20 Follow up: Response: No adverse reaction; Medication administered at discharge. 03:10 Drug: Clindamycin PO 300 mg PO once Route: PO; 8 03:20 Follow up: Response: No adverse reaction; Medication administered at discharge. 03:20 Drug: HYDROcodone-acetaminophen PO 5 mg-325 mg 1 tabs PO once Route: PO; 03:20 Follow up: Response: No adverse reaction; Medication administered at discharge. Disposition Summary: 05/26/23 02:59 Discharge Ordered Notes: Location: Home cp Problem: new cp Symptoms: have improved cp Condition: Stable cp Diagnosis - Chest pain, unspecified cp - Disorder of teeth and supporting structures, unspecified cp Followup: cp - With: Leonidas Lindsay MD - When: 2 - 3 days - Reason: chest pain Followup: cp - With: Abelino Correia MD - When: 2 - 3 days - Reason: Recheck today's complaints Discharge Instructions: - Discharge Summary Sheet cp - Nonspecific Chest Pain, Adult cp - Dental Pain cp - Aspirin and Your Heart cp Forms: - Medication Reconciliation Form cp - Thank You Letter cp - Antibiotic Education cp - Prescription Opioid Use cp - Patient Portal Instructions cp - Leadership Thank You Letter cp Prescriptions: - Clindamycin HCl 300 mg Oral Capsule - take 1 capsule ORAL route every 6 hours for 10 days; 40 capsule; Refills: 0, cp Product Selection Permitted - Diclofenac Sodium 75 mg Oral Tablet Sustained Release - take 1 tablet ORAL route 2 times per day; 30 tablet; Refills: 0, Product cp Selection Permitted Signatures: Dispatcher [employer] [facility] Buck Mendoza PA PA cp Steve Logan RN RN as6 Julianna Harrell RN RN km8 Corrections: (The following items were deleted from the chart) 05/27 02:10 05/25 22:00 This 52 yrs old Female presents to ER via Ambulatory with cp complaints of Facial Pain. cp
--- NOTE | 2023-05-26 02:59 | ER ---
Nurse's Notes [facility] Name: Star Andrade Age: 52 yrs Sex: Female : 1970 Arrival Date: 05/25/2023 Time: 21:13 Bed 16 Private MD: Diagnosis: Chest pain, unspecified;Disorder of teeth and supporting structures, unspecified Presentation: 05/25 21:18 Chief complaint: Patient states: right sided facial pain "it feels like it's twitching" as6 and chest pain that has been going on for 1-2 days. Coronavirus screen: At this time, the client does not indicate any symptoms associated with coronavirus-19. Ebola Screen: No symptoms or risks identified at this time. Initial Sepsis Screen: Does the patient meet any 2 criteria? No. Patient's initial sepsis screen is negative. Does the patient have a suspected source of infection? No. Patient's initial sepsis screen is negative. Risk Assessment: Do you want to hurt yourself or someone else? Patient reports no desire to harm self or others. Onset of symptoms was May 23, 2023. 21:18 Acuity: KASHIF 3 as6 21:18 Method Of Arrival: Ambulatory as6 Historical: - Allergies: 21:18 No Known Allergies; as6 - Home Meds: 21:18 None [Active]; as6 - PMHx: 21:18 Stomach Ulcers; as6 - PSHx: 21:18 None; as6 - Immunization history:: Client reports receiving the 2nd dose of the Covid vaccine. - Social history:: Smoking status: Patient denies any tobacco usage or history of. Screenin:53 [facility] [place] ED Fall Risk Assessment (Adult) History of falling in the last 3 months, km8 including since admission No falls in past 3 months (0 pts) Confusion or Disorientation No (0 pts) Intoxicated or Sedated No (0 pts) Impaired Gait No (0 pts) Mobility Assist Device Used No (0 pt) Altered Elimination No (0 pt) Score/Fall Risk Level 0 - 2 = Low Risk Oriented to surroundings, Maintained a safe environment, Educated pt \\T\\ family on fall prevention, incl call for assistance when getting out of bed, Assessed \\T\\ reinforced patient's understanding of fall precautions. Abuse screen: Denies threats or abuse. Denies injuries from another. Nutritional screening: No deficits noted. Tuberculosis screening: No symptoms or risk factors identified. Assessment: 21:53 General: Appears in no apparent distress. uncomfortable, Behavior is calm, cooperative, km8 appropriate for age. Pain: Complains of pain in head, right side of face, and left chest left chest radiates to left arm. Neuro: Huerta Agitation-Sedation Scale (RASS): 0 - Alert and Calm Level of Consciousness is awake, alert, obeys commands, Oriented to person, place, time, situation, Reports headache in right. Cardiovascular: Reports chest pain, Denies shortness of breath, vomiting, Capillary refill < 3 seconds Patient's skin is warm and dry. Respiratory: Airway is patent Respiratory effort is even, unlabored, Respiratory pattern is regular, symmetrical. GI: No signs and/or symptoms were reported involving the gastrointestinal system. : No signs and/or symptoms were reported regarding the genitourinary system. EENT: No signs and/or symptoms were reported regarding the EENT system. Derm: Skin is intact, is healthy with good turgor, Skin is dry, Skin is pink, warm \\T\\ dry. normal, Skin temperature is warm. Musculoskeletal: No signs and/or symptoms reported regarding the musculoskeletal system. Range of motion: intact in all extremities. 22:58 Reassessment: Patient appears in no apparent distress at this time. No changes from km8 previously documented assessment. Patient and/or family updated on plan of care and expected duration. Pain level reassessed. Patient is alert, oriented x 3, equal unlabored respirations, skin warm/dry/pink. 23:05 Reassessment: Patient appears in no apparent distress at this time. Patient and/or km8 family updated on plan of care and expected duration. Pain level reassessed. Patient is alert, oriented x 3, equal unlabored respirations, skin warm/dry/pink. Patient states symptoms have improved. 23:05 Pain: Complains of pain in right side of face, left chest, and head Pain currently is 3 km8 out of 10 on a pain scale. 05/26 00:10 Reassessment: Patient appears in no apparent distress at this time. No changes from km8 previously documented assessment. Patient and/or family updated on plan of care and expected duration. Pain level reassessed. Patient is alert, oriented x 3, equal unlabored respirations, skin warm/dry/pink. 01:01 Reassessment: Patient appears in no apparent distress at this time. No changes from km8 previously documented assessment. Patient and/or family updated on plan of care and expected duration. Pain level reassessed. Patient is alert, oriented x 3, equal unlabored respirations, skin warm/dry/pink. 02:01 Reassessment: Patient appears in no apparent distress at this time. No changes from km8 previously documented assessment. Patient and/or family updated on plan of care and expected duration. Pain level reassessed. Patient is alert, oriented x 3, equal unlabored respirations, skin warm/dry/pink. 03:01 Reassessment: Patient appears in no apparent distress at this time. No changes from km8 previously documented assessment. Patient and/or family updated on plan of care and expected duration. Pain level reassessed. Patient is alert, oriented x 3, equal unlabored respirations, skin warm/dry/pink. Vital Signs: 05/25 21:17 BP 152 / 106; Pulse 85; Resp 18 S; Temp 97.3(TE); Pulse Ox 97% on R/A; Weight 63.5 kg as6 (R); Height 5 ft. 3 in. (R); Pain 7/10; 21:53 BP 163 / 127; Pulse 87; Resp 16; Pulse Ox 100% on R/A; km8 22:30 BP 154 / 107; Pulse 84; Resp 16; Pulse Ox 99% on R/A; km8 23:00 BP 146 / 91; Pulse 85; Resp 16; Pulse Ox 96% ; km8 23:30 BP 130 / 92; Pulse 73; Resp 16; Pulse Ox 97% on R/A; km8 1208 00:00 BP 136 / 98; Pulse 73; Pulse Ox 97% on R/A; km8 00:30 BP 157 / 102; Pulse 82; Resp 16; Pulse Ox 97% on R/A; km8 01:00 BP 149 / 99; Pulse 70; Resp 16; Pulse Ox 97% on R/A; km8 01:30 BP 141 / 101; Pulse 68; Resp 16; Pulse Ox 95% on R/A; km8 02:00 BP 147 / 101; Pulse 67; Resp 16; Pulse Ox 97% on R/A; km8 03:00 BP 158 / 108; Pulse 66; Resp 16; Pulse Ox 98% on R/A; km8 05/25 21:17 Body Mass Index 24.80 (63.50 kg, 160.02 cm) as6 12 21:17 Pain Scale: Adult as6 Lolita Coma Score: 05/25 21:53 Eye Response: spontaneous(4). Motor Response: obeys commands(6). Verbal Response: km8 oriented(5). Total: 15. ED Course: 21:17 Patient arrived in ED. as6 21:18 Arm band placed on. as6 21:19 Triage completed. as6 21:19 Buck Mendoza PA is PHCP. cp 21:19 Buck Mcbride MD is Attending Physician. cp 21:22 Julianna Harrell, TOMMIE is Primary Nurse. km8 21:53 Patient has correct armband on for positive identification. Placed in gown. Bed in low km8 position. Call light in reach. Side rails up X 1. Client placed on continuous cardiac and pulse oximetry monitoring. NIBP monitoring applied. Door closed. Noise minimized. Lights dimmed. 21:53 No provider procedures requiring assistance completed. Patient maintains SpO2 km8 saturation greater than 95% on room air. 22:10 XRAY Chest (1 view) In Process Unspecified. EDMS 22:15 Basic Metabolic Panel Sent. km8 22:15 CBC with Diff Sent. km8 22:15 D-Dimer Sent. km8 22:15 LFT's Sent. km8 22:15 Magnesium Sent. km8 22:15 NT PRO-BNP Sent. km8 22:15 PT-INR Sent. km8 22:15 Troponin HS Sent. km8 22:15 Inserted saline lock: 20 gauge in left antecubital area, using aseptic technique. Blood km8 collected. 12/08 00:46 CT Chest For PE Angio In Process Unspecified. EDMS 00:46 CT Head Brain wo Cont In Process Unspecified. EDMS 00:46 CT Facial Bones W/O Con In Process Unspecified. EDMS 02:58 Leonidas Lindsay MD is Referral Physician. cp 02:58 Abelino Correia MD is Referral Physician. cp 03:21 Provided Education on: d/c teaching. km8 03:21 IV discontinued, intact, bleeding controlled, No redness/swelling at site. Pressure km8 dressing applied. Administered Medications: 05/25 22:15 Drug: Aspirin PO Chewable Tablet 324 mg PO once; 81 mg tablets x 4 Route: PO; km8 22:55 Follow up: Response: No adverse reaction km 22:15 Drug: morphine IVP or IV 2 mg IVP once over 4 mins Route: IVP; Infused Over: 4 mins; km8 Site: left antecubital; 22:55 Follow up: Response: No adverse reaction km8 05/26 00:10 Drug: Ketorolac IVP 15 mg IVP once Route: IVP; Site: left antecubital; km8 01:00 Follow up: Response: No adverse reaction; Pain is decreased km 03:10 Drug: Potassium PO Effervescent Tablet 50 mEq PO once; dissolve in 4 ounces of water or km8 juice Route: PO; 03:20 Follow up: Response: No adverse reaction; Medication administered at discharge. km 03:10 Drug: Clindamycin PO 300 mg PO once Route: PO; km8 03:20 Follow up: Response: No adverse reaction; Medication administered at discharge. km 03:20 Drug: HYDROcodone-acetaminophen PO 5 mg-325 mg 1 tabs PO once Route: PO; km8 03:20 Follow up: Response: No adverse reaction; Medication administered at discharge. km8 Medication: 05/25 21:53 VIS not applicable for this client. km8 Outcome: 05/26 02:59 Discharge ordered by . deidra 03:21 Discharged to home ambulatory, with family, km8 03:21 Condition: good 03:21 Discharge instructions given to patient, family, Instructed on discharge instructions, follow up and referral plans. medication usage, Demonstrated understanding of instructions, follow-up care, medications, Prescriptions given X 2, 03:22 Patient left the ED. km8 Signatures: Dispatcher [employer] EDMS Buck Mendoza PA PA cp Slawson, Ashby, RN RN as6 Julianna Harrell RN RN km8
[2023-05-26] MEDS ORDERED: POTASSIUM 25 MEQ EFFERV TAB ONE (03:20)
[2023-05-26] MEDS ORDERED: HYDROCODONE/APAP 5/325 MG TAB ONE (03:29)
[2023-05-26 03:41] VITALS: TEMP 97.3
[2023-05-26 03:51] VITALS: BP 158/108; O2SAT 98
--- NOTE | 2023-05-26 21:18 | RAD REPORT ---
EXAM DESCRIPTION: CT - Head Brain Wo Cont - 05/26/2023 7:11 am CLINICAL HISTORY: HEADACHE COMPARISON: 04/14/2020 TECHNIQUE: Axial CT of the head obtained from the skull apex to the skull base without contrast. Thi s exam was performed according to our departmental dose-optimization program, which includes automate d exposure control, adjustment of the mA and/or kV according to patient size and/or use of iterative reconstruction technique. FINDINGS: No acute intracranial hemorrhage identified. No mass, mass effect, shift of the midline, a bnormal extra-axial fluid collection or CT evidence of acute ischemic change identified. The ventricu lar system is unremarkable. No acute abnormalities of the supratentorial white matter, basal gangli a, cerebellum, or brainstem. Flattening of the diaphragm of sella. The visualized paranasal sinuses and the mastoids are relatively well aerated. No skull fracture id entified. Visualized orbits and globes are unremarkable. IMPRESSION: 1. No acute intracranial abnormality identified. Electronically signed by: Kyle Askew DO 05/26/2023 01:08 AM ENAMEL BURNER M Due to temporary technical issues with the PACS/Fluency reporting system, reports are being signed by the in house radiologists without review as a courtesy to insure prompt reporting. The interpreting radiologist is fully responsible for the content of the report.
--- NOTE | 2023-05-26 21:28 | RAD REPORT ---
EXAM DESCRIPTION: CT - Facial Bones W/ Mpr - 05/26/2023 7:11 am CLINICAL HISTORY: The patient is 52 years old and is Female; right side jaw pain Bed Name: 16 TECHNIQUE: Axial computed tomography images of the face without intravenous contrast. Sagittal and coronal reformatted images were created and reviewed. This CT exam was performed using one or more of the following dose reduction techniques: automated exposure control, adjustment of the mA and/o r kV according to patient size, and/or use of iterative reconstruction technique. COMPARISON: No relevant prior studies available. FINDINGS: BONES/JOINTS: No acute fracture. SOFT TISSUES: Unremarkable. ORBITS: Bilateral globes and orbits are intact with no abnormal intraorbital mass, collection, or f oreign body. SINUSES: Unremarkable. No air-fluid levels. DENTAL: Peripheral lucency about the base of the left 1st and 2nd mandibular incisors, with adjacen t cortical breakthrough. No definite fluid collection to suggest overt abscess. OROPHARYNX: Punctate calcifications noted in the bilateral palatine tonsils, suggesting chronic ton sillitis. IMPRESSION: 1. Peripheral lucency about the base of the left 1st and 2nd mandibular incisors, with adjacent cortical breakthrough. No definite fluid collection to suggest overt abscess. Dental medici ne correlation recommended. 2. Otherwise, allowing for lack of intravenous contrast, no acute abnormality within the face. Electronically signed by: Ricardo Marcos MD 05/26/2023 01:12 AM BRANCH MAKER Due to temporary technical issues with the PACS/Fluency reporting system, reports are being signed by the in house radiologists without review as a courtesy to insure prompt reporting. The interpreting radiologist is fully responsible for the content of the report.
--- NOTE | 2023-05-26 21:32 | RAD REPORT ---
EXAM DESCRIPTION: CT - Chest For Pe Angio - 05/26/2023 7:12 am CLINICAL HISTORY: CHEST PAIN COMPARISON: None Available. TECHNIQUE: CTA of the chest obtained following the uncomplicated intravenous administration of iodin ated contrast. 3-D/MIP reformatted images of the chest available for evaluation. This exam was perfor med according to our departmental dose-optimization program, which includes automated exposure contro l, adjustment of the mA and/or kV according to patient size and/or use of iterative reconstruction te chnique. FINDINGS: Chest: Pulmonary arteries: Contrast bolus is adequate.No filling defects identified in the pulmonary arterie s to suggest pulmonary embolus. Thyroid: No abnormalities of the visualized thyroid. Great Vessels: Great vessels have normal anatomic configuration. Thoracic Aorta: No abnormalities of the thoracic aorta identified. No evidence of aortic dissection. Heart: No cardiomegaly, significant pericardial effusion, or coronary artery atherosclerosis Lymph Nodes: No enlarged mediastinal lymph nodes identified. Esophagus: No abnormalities of the esophagus identified. Other: No additional findings. Lungs: Minimal dependent atelectasis. No confluent airspace consolidation. Pleura: No pleural effusion or pneumothorax. Trachea/Airways: No abnormalities of the visualized trachea or airways. Bones: Mild endplate spondylosis. Upper Abdomen: Limited images of the upper abdomen demonstrate no definite abnormalities of visualize d portions of the liver, gallbladder, pancreas, spleen, adrenal glands, or kidneys. IMPRESSION: No pulmonary embolus. No evidence of aortic dissection. No acute pneumonic process. Electronically signed by: Kyle Askew DO 05/26/2023 01:05 AM CHECKMAN M Due to temporary technical issues with the PACS/Fluency reporting system, reports are being signed by the in house radiologists without review as a courtesy to insure prompt reporting. The interpreting radiologist is fully responsible for the content of the report.
--- NOTE | 2023-05-30 14:01 | EKG ---
Test Date: 2023-05-25 Test Time: 22:04:47 Stone Engraver: NIKOLAS MEASUREMENT RESULTS: Intervals: Rate: 81 NM: 144 QRSD: 70 QT: 388 QTc: 450 [place]: P: 72 NM: 144 QRS: 85 T: 49 INTERPRETIVE STATEMENTS: Normal sinus rhythm Nonspecific ST abnormality Abnormal ECG Compared to ECG 07/22/2015 18:28:54 ST (T wave) deviation now present Electronically Signed On 05-30-23 13:44:32 WINDING MACHINE OPERATOR by Leonidas Lindsay
== END 2023-05-26 03:22 | disposition home or self-care (01) ==
LOC: ER 21:13
DX: R07.89 Other chest pain (principal); K08.9 Disorder of teeth and supporting structures, unspecified
CPT/HCPCS: 93005; 85025; 80048; 36415; 83735; 85610; 85379; 80076; 84484 ×2; 83880; 70450; 70486; 76377; 71275; 71045; 96375; 96374; 99285; Q9967; J2270